=== PATIENT | male | born 1995 | race Two or more races ===

== ENCOUNTER 2017-10-08 15:22 | Emergency (ER) | payer MEDICAID, OTHER ==
[~2017-10-08] VITALS: Ht 188 cm; Wt 88.5 kg
[2017-10-08 16:34] VITALS: BP 119/79
[2017-10-08] MEDS ORDERED: HYDROcodone-ACET 10/325MG TAB PO ONE (17:15)
[2017-10-08] MEDS ORDERED: KETOROLAC TROMETH 60MG/2ML VIAL IM ONE (17:15)
== END 2017-10-08 17:59 | disposition home or self-care (01) ==
LOC: ER 15:27
DX: M25.561 Pain in right knee (principal); V29.9XXA Motorcycle rider (driver) (passenger) injured in unspecified traffic accident, initial encounter; Y93.55 Activity, bike riding; Y92.89 Other specified places as the place of occurrence of the external cause; Y99.8 Other external cause status
CPT/HCPCS: 73030; 73564; 73610; 96372; 99284; J1885